=== PATIENT | male | born 1935 | race Caucasian/White ===

== ENCOUNTER 2020-08-12 02:43 | Observation (INO) | payer MEDICARE, OTHER ==
[~2020-08-12] VITALS: Ht 177.8 cm; Wt 77.1 kg
[2020-08-12 03:11] LABS: HEMOGLOBIN 14.1 gm/dl (14.0-17.5); RED BLOOD COUNT 4.41 M/UL (4.20-5.50); WHITE BLOOD COUNT 8.3 K/UL (4.5-11.0)
[2020-08-12 03:31] LABS: BUN/CREATININE RATIO 12 (0-10)
[2020-08-12] MEDS ORDERED: CLOPIDOGREL75 MG PO (07:31)
[2020-08-12] MEDS ORDERED: METOPROLOL TART25 MG PO (07:31)
[2020-08-12] MEDS ORDERED: ASPIRIN EC81 MG PO (07:32)
[2020-08-12] MEDS ORDERED: ZOCOR20 MG PO (07:32)
[2020-08-12] MEDS ORDERED: LEVOTHYROXINE50 MCG PO (07:33)
[2020-08-12] MEDS ORDERED: GABAPENTIN600 MG PO (07:33)
[2020-08-12] MEDS ORDERED: FENOFIBRATE54 MG PO (07:34)
[2020-08-12] MEDS ORDERED: HYDROCODON-ACE1 EAC6 PO (07:35)
[2020-08-13 05:27] LABS: HEMOGLOBIN 12.5 gm/dl (14.0-17.5); WHITE BLOOD COUNT 7.6 K/UL (4.5-11.0)
[2020-08-13] MEDS ORDERED: LOPRESSOR 25 MG25 MG PO (14:23)
[2020-08-13] MEDS ORDERED: ISOSORBIDE MONO30 MG PO (14:23)
== END 2020-08-13 15:40 | disposition home or self-care (01) ==
LOC: ER1 02:43 → MED SURG 4 07:03 → CDU 07:03 → MED SURG 4 07:03 → M/S 07:03 → MED SURG 4 20:55
PROVIDERS: Emergency Medicine; Physician Assistant; ADMIT Internal Medicine Infectious Disease
DX: M25.512 Pain in left shoulder (principal); R07.89 Other chest pain; R77.8 Other specified abnormalities of plasma proteins; I12.9 Hypertensive chronic kidney disease with stage 1 through stage 4 chronic kidney disease, or unspecified chronic kidney disease; N18.30 Chronic kidney disease, stage 3 unspecified; R00.1 Bradycardia, unspecified; E03.9 Hypothyroidism, unspecified; E78.5 Hyperlipidemia, unspecified; K80.20 Calculus of gallbladder without cholecystitis without obstruction; M19.90 Unspecified osteoarthritis, unspecified site; D17.1 Benign lipomatous neoplasm of skin and subcutaneous tissue of trunk; Z86.79 Personal history of other diseases of the circulatory system; Z79.82 Long term (current) use of aspirin; Z79.02 Long term (current) use of antithrombotics/antiplatelets; Z79.899 Other long term (current) drug therapy; Z20.822 Contact with and (suspected) exposure to COVID-19
CPT/HCPCS: ECHO; 36415; 71045; 73030; 80048; 80053; 82550; 82553; 83690; 83874; 83880; 84443; 84484; 85025; 85379; 93005; 93306; 99285; G0378; Q9967; U0002